=== PATIENT | female | born 1970 | race Caucasian/White ===

== ENCOUNTER 2023-04-06 19:22 | Emergency (ER) | payer MEDICAID, SELFPAY ==
--- NOTE | ~2023-04-06 | CT_ITS ---
EXAMINATION: CT ABDOMEN AND PELVIS WITHOUT CONTRAST CLINICAL INFORMATION: Nausea and vomiting COMPARISON: None available. TECHNIQUE: Multidetector volumetric imaging was performed from the superior aspect of the liver through the pubic symphysis. Sagittal and coronal reformatted images were obtained on the technologist's workstation. This CT examination was performed using dose optimization techniques as appropriate, variously including the following: *Automated exposure control *Adjustment of mA and/or kV according to patient size (this includes techniques or standardized protocols for targeted exams where dose is matched to indication/reason for exam; i.e. extremities or head) *Use of iterative reconstruction technique DLP: 1346 mGy-cm in conjunction with the head CT. FINDINGS: LUNG BASES: The visualized lung bases are unremarkable. LIVER, GALLBLADDER, AND BILIARY TREE: The liver is normal in size, shape, and attenuation. No focal hepatic lesion or biliary ductal dilatation is present. The gallbladder is unremarkable with no evidence of radiopaque gallstones, gallbladder wall thickening, or obvious pericholecystic inflammatory changes. PANCREAS: Unremarkable. SPLEEN: Unremarkable. ADRENAL GLANDS: Unremarkable. KIDNEYS AND URETERS: The kidneys are normal in size, shape, and attenuation. No hydronephrosis, hydroureter, or calculi seen. No perinephric stranding. BLADDER: Mostly decompressed with a Wen catheter in place. GASTROINTESTINAL TRACT: The stomach is unremarkable. Normal caliber small bowel. No obstruction. No colonic wall thickening or inflammation. The appendix is not seen. No inflammation in the region of the cecum to suggest acute appendicitis. No colonic wall thickening or inflammation. No free air or free fluid. ABDOMINAL WALL: No significant hernia is appreciated. LYMPH NODES: Normal. VASCULAR: Unremarkable. PELVIC VISCERA: The uterus and adnexa are unremarkable. OSSEOUS STRUCTURES: No acute or suspicious osseous abnormality. Mild degenerative change at L4-L5 with disc space narrowing and vacuum disc phenomenon. CT/CT abdomen pelvis wo IV con IMPRESSION: No acute findings in the abdomen or pelvis. No inflammatory changes. Fleischner guidelines were followed.
--- NOTE | ~2023-04-06 | CT_ITS ---
EXAMINATION: CT HEAD WITHOUT CONTRAST CLINICAL INFORMATION: Altered mental status COMPARISON: None. TECHNIQUE: Contiguous axial imaging was performed from the skull base to vertex without intravenous contrast. This CT examination was performed using dose optimization techniques as appropriate, variously including the following: * Automated exposure control * Adjustment of mA and/or kV according to patient size (this includes techniques or standardized protocols for targeted exams where dose is matched to indication/reason for exam; i.e. extremities or head) Use of iterative reconstruction technique DLP: 1346 mGy-cm in conjunction with the abdominal CT. FINDINGS: There is no evidence of acute intracranial hemorrhage or territorial infarction. No abnormal mass effect or midline shift is seen. Melendez to white matter differentiation is well preserved. No extra-axial fluid collections are identified. No hydrocephalus. No significant volume loss. There is no abnormal attenuation within the brain parenchyma. The osseous structures and soft tissues are normal. The mastoid air cells and visualized portions of the paranasal sinuses are well aerated. CT/CT head/brain wo IV con IMPRESSION: No acute intracranial pathology.
--- NOTE | ~2023-04-06 | XR_ITS ---
EXAMINATION: XR CHEST CLINICAL INFORMATION: Chest pain. COMPARISON: None available. TECHNIQUE: Frontal portable view of the chest was obtained. 9:54 PM FINDINGS: No significant abnormality is noted involving the heart, lungs, mediastinum, bony thorax or soft tissues. XR/XR chest 1V IMPRESSION: Unremarkable examination.
--- NOTE | 2023-04-06 19:48 | ECG_ITS ---
Test Reason : NAUSEA/VOMITING Blood Pressure : / mmHG Vent. Rate : 073 BPM Atrial Rate : 073 BPM P-R Int : 208 ms QRS Dur : 084 ms QT Int : 438 ms P-R-T Axes : 073 056 071 degrees QTc Int : 482 ms Normal sinus rhythm Prolonged QT Abnormal ECG No previous ECGs available Referred By: Millie Rodriguez Electronically Signed By:ANGELA SALAZAR MD
[2023-04-06 19:52] VITALS: BP 143/91; PULSE 90; O2SAT 98
[2023-04-06 19:53] VITALS: PULSE 90; RESP 20; O2SAT 96; BMI 23.5
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
--- NOTE | 2023-04-06 20:01 | MHC.EDTECH ---
PATIENT CAME IN VIA EMS ,PATIENT VOMIT ALL OVER HER BODY ,AND WAS INCONTINENT OF LOOSE STOOL ARE GIVEN ,BEDDING CHANGE ,PATIENT IS MORE AWAKE NOW ,AND IS RESTING .
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
[2023-04-06] MEDS: 0.9 % Sodium Chloride 1,000 ML 999 ML IV ×3 (20:23→22:08)
[2023-04-06] MEDS: ondansetron HCL 4 MG/2 ML VIAL IVPUSH (20:23)
[2023-04-06 20:25] LABS: MANUAL DIFF FLAG NO
[2023-04-06 20:36] LABS: Basophils Absolute Auto 0.1 X10*3/uL (0.0-0.2); Basophils Percent Auto 0.6 % (0-2); Eosinophils Absolute Auto 0.4 X10*3/uL (0.0-0.4); Eosinophils Percent Auto 3.5 % (0-4); Hematocrit 36.2 % (37.0-47.0); Hemoglobin 12.1 g/dl (12.0-16.0); Imm Gran Abs Auto 0.18 X10*3/uL (0.00-0.03); Imm Gran Pct Auto 1.8 % (0.0-0.4); Lymphocytes Absolute Auto 2.7 X10*3/uL (1.2-4.9); Lymphocytes Percent Auto 27.2 % (20-40); Mean Corpuscular HGB Conc 33.4 g/dl (31.0-35.0); Mean Corpuscular Hemoglobin 31.7 pg (27.0-33.0); Mean Corpuscular Volume 94.8 fL (80.0-98.0); Mean Platelet Volume 10.1 fL (9.4-12.3); Monocytes Absolute Auto 0.7 X10*3/uL (0.1-1.2); Monocytes Percent Auto 6.6 % (2-11); Neutrophils Percent Auto 60.3 % (45-73); Platelet Count 241 X10*3/uL (160-400); Red Blood Count 3.82 X10*6/uL (4.20-5.50); Red Cell Distribution Width 12.5 % (11.0-16.0); White Blood Count 9.9 X10*3/uL (4.8-10.8)
[2023-04-06 20:42] VITALS: BP 126/78; PULSE 68; RESP 16; TEMP 36.6; O2SAT 98
[2023-04-06 20:46] LABS: Ethanol < 10 mg/dL
[2023-04-06 20:48] LABS: Alanine Aminotransferase 16 U/L (0-31); Albumin Level 4.4 g/dL (3.5-5.0); Alkaline Phosphatase 47 U/L (39-117); Anion Gap 12 (12-20); Aspartate Amino Transferase 20 U/L (5-31); Bilirubin Direct 0.2 mg/dL (0.0-0.5); Bilirubin Total 0.8 mg/dL (0.0-1.0); Blood Urea Nitrogen 13 mg/dL (9-16); Calcium 9.7 mg/dL (8.4-10.2); Carbon Dioxide 26 mmol/L (22-29); Chloride 108 mmol/L (96-108); Creatinine Clr Calc Pharmacy 76.2; Estimated Glomerular Filt Rate > 60; Glucose Random 174 mg/dL (60-115); Lipase 15 U/L (8-78); Potassium 3.1 mmol/L (3.3-5.1); Sodium 143 mmol/L (135-145); Total Protein 6.7 g/dL (6.5-8.0)
[2023-04-06 20:51] LABS: Acetaminophen LAB < 17 mcg/mL (<30); Salicylate < 5.0 mg/dL (15-30); Troponin-I High Sensitivity < 2.7 ng/L (<3.5-17.0)
[2023-04-06 21:23] VITALS: BP 118/72; PULSE 52; RESP 16; TEMP 36.8; O2SAT 98
[2023-04-06 21:33] LABS: Appearance Urine Clear; Color Urine Yellow; Glucose Urine UA Negative (Negative); Leukocyte Esterase Urine Negative (Negative); Nitrite Urine Negative (Negative); PH 5.5 (5.0-9.0); Urine Blood Negative (Negative); Urine Ketones Trace mg/dL (Negative); Urine Protein Negative (Neg-Trace)
[2023-04-06 21:44] LABS: Amphetamine Screen Urine Not Detected (Not Detect); Barbiturates, Urine Not Detected (Not Detect); Benzodiazepines Screen Urine Not Detected (Not Detect); Cannabinoid Screen Urine POSITIVE (Not Detect); Cocaine Screen Urine Not Detected (Not Detect); Fentanyl, urine Not Detected (Not Detect); Opiate Screen Urine Not Detected (Not Detect); Phencyclidine Screen Urine Not Detected (Not Detect)
[2023-04-06 21:51] LABS: WBC Urine 0-5 /HPF (0-5)
[2023-04-06 21:52] LABS: Bacteria Urine Trace (None Seen); Hyaline Casts Urine 0-2 /LPF (0-2); RBC Urine 0-2 /HPF (0-2); Squamous Epithelial Cell Urine 0-2 /HPF (0-2)
[2023-04-06 22:00] VITALS: BP 119/74; PULSE 52; RESP 16; O2SAT 100
[2023-04-07] VITALS: BP 135/83; PULSE 56; RESP 16; TEMP 36.8; O2SAT 97
== END 2023-04-07 00:32 | disposition home or self-care (01) ==
PROVIDERS: Emergency Provider Emergency Medicine Emergency Medical Services
DX: E86.0 Dehydration (principal); R11.2 Nausea with vomiting, unspecified; F12.99 Cannabis use, unspecified with unspecified cannabis-induced disorder; R53.83 Other fatigue
CPT/HCPCS: 36415; 70450; 71045; 74176; 80048; 80076; 80143; 80179; 80307; 81001; 83690; 84484; 85025; 93005; 96361; 96374; 99284; 99285; J2405

== ENCOUNTER → 2023-04-06 19:48 | Outpatient (BNV) | payer OTHER, SELFPAY | PROVIDERS: Emergency Provider Emergency Medicine Emergency Medical Services; Visit Provider Internal Medicine Cardiovascular Disease | DX: R11.2 Nausea with vomiting, unspecified (principal) | CPT/HCPCS: 93010 ==

== ENCOUNTER 2025-04-11 15:16 | Outpatient (AMB) | payer BC, SELFPAY ==
--- OUTSIDE RECORDS SUMMARY | 2025-04-11 16:06 | XMS_ITS | Clinical Summary ---
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 Active ciprofloxacin HCl (CIPRO) 500 mg Tablet 07/31/2015 Active Active Problems Problem Noted Date Diagnosed Date Chronic cough 10/10/2015 Difficulty breathing 08/13/2015 Heart burn 08/13/2015 Chronic fatigue 08/13/2015 Dysuria 08/13/2015 Social History Tobacco Use Types Packs/Day Years Used Date Smoking Tobacco: Never Smokeless Tobacco: Never Comments No Sex and Gender Information Value Date Recorded Sex Assigned at Not on file Legal Sex Female 3:03 PM EDT Gender Identity Not on file Sexual Orientation Not on file Last Filed Vital Signs Vital Sign Reading Time Taken Comments Blood Pressure 128/87 01/07/2016 1:12 PM EDT Pulse 87 01/07/2016 1:12 PM EDT Temperature 36.8 C (98.2 F) 06/24/2015 12:57 PM EDT Respiratory Rate 16 06/24/2015 12:57 PM EDT Oxygen Saturation 100% 06/24/2015 12:57 PM EDT Inhaled Oxygen Concentration - - Weight 61.2 kg (135 lb) 01/07/2016 1:12 PM EDT Height 180.3 cm (5' 11 ) 01/07/2016 1:12 PM EDT Body Mass Index 18.83 01/07/2016 1:12 PM EDT Plan of Treatment Health Maintenance Due Date Last Done Comments CT Colonography 1970 Colonoscopy 1970 Colorectal Cancer Screening 1970 FIT DNA 1970 FIT 1970 Sigmoidoscopy (10 year) with FIT yearly 1970 Sigmoidoscopy 1970 HIV screen 1988 Hepatitis C Screening 1988 Hepatitis B vaccine (0-59 yrs) and Risk (1) 1989 Tetanus/Diphtheria/Pertussis Vaccines (1 - Tdap) 05/09 HPV test 2000 PAP Smear 2000 Breast Cancer Share Decision Needed 2010 Breast Cancer screening 2010 Pneumoccocal Vaccine: 50+ (1 of 1 - PCV) 2020 Zoster vaccine (1 of 2) 2020 Covid-19 Vaccine (1 - season) 2024 Influenza (Flu) vaccine (1 o f 1 - Influenza standard series) 05/15/2025 Insurance [facility] OOS Care Teams Cuffing Machine Operator Relationship Specialty Start Date End Date None None PCP - General 06/24/15
--- OUTSIDE RECORDS SUMMARY | 2025-04-11 16:06 | XMS_ITS | Clinical Summary ---
Author Organization [facility] Address [address] [place], [place] [id number] Phone Care Team Providers Care Ophthalmology Assistant Name Role Phone Pcp, Not Required Primary Care Provider Unavaila ble Allergies Active Allergy Reactions Criticality Noted Date Comments Mold 04/14/2024 Medications No known medications Active Problems Problem Noted Date Diagnosed Date Sleep-disordered breathing 04/14/2024 Assessment & Plan (04/14/2024 12:55 PM EDT): I had the pleasure of seeing Ms. Rogers today as a new patient for evaluation of suspected sleep disordered breathing/sleep apnea. Based on her symptoms of frequent nighttime awakenings, nonrestorative sleep and her episodes where she wakes up with a sensation as though it is difficult to breathe, I feel that further workup for LORI is indicated. I placed an order for her to undergo overnight portable sleep testing. I plan to see her back to review those results. Optimal body weight, nonsupine sleep positioning and sleep hygiene are all appropriate. Nasal obstruction 04/14/2024 Assessment & Plan (04/14/2024 12:56 PM EDT): She also describes a sensation as though there is something blocking her upper airways. She was assured that on her detailed examination of the upper aerodigestive tract, there is nothing focally suspicious or worrisome. In particular, there is no mass lesion, infection, foreign body, polyps or adenoid hypertrophy. She does have a mild residual left septal deviation despite previous surgery. I doubt this is the culprit. Allergy management, environmental controls and saline are reasonable. I have asked her to forward a copy of her recent CT scan report. I do not see a clear indication for antibiotics, surgery or further imaging at this time. Social History Tobacco Use Types Packs/Day Years Used Date Smoking Tobacco: Never Smokeless Tobacco: Never Tobacco Cessation:Counseling Given: Not Answered Comments:Allergy to cigarette smoke Alcohol Use Standard Drinks/Week Comments Yes 0 (1 standard drink = 0.6 oz pur e alcohol) occ. Education Answer Date Recorded Are you interested in more education? Not on melinda e 01/14/2024 Are you concerned about learning? Not on file 01/14/2024 No 01/14/2024 No 01/14/2024 Digital Access Answer Date Recorded No 01/14/2024 No 01/14/2024 Reliable internet access at home? Not on file 01/14/2024 Device with a working camera? Not on file Comments Unknown Sex and Gender Information Value Date Recorded Sex Assigned at Not on file Legal Sex Female 10:26 AM EDT Gender Identity Not on file Sexual Orientation Not on file Last Filed Vital Signs Vital Sign Reading Time Taken Comments Blood Pressure - - Pulse - - Temperature - - Respiratory Rate - - Oxygen Saturation - - Inhaled Oxygen Concentration - - Weight 63.5 kg (140 lb) 04/14/2024 12:31 PM EDT Height 180.3 cm (5' 11 ) 04/14/2024 12:31 PM EDT Body Mass Index 19.53 04/14/2024 12:31 PM EDT Plan of Treatment Health Maintenance Due Date Last Done Comments Adult Td,Tdap Booster 1970 LIPID PANEL 1970 DEPRESSION SCREENING 1982 HEPATITIS C SCREENING 1988 HIV ONE-TIME SCREENING (18-6 5 YEARS) 1988 PAP SMEAR 1991 MAMMOGRAM 2010 COLOGUARD 2015 COLONOSCOPY 2015 COLORECTAL CANCER SCREENING 2015 FIT TEST 2015 FOBT 2015 SIGMOIDOSCOPY 2015 VIRTUAL COLONOSCOPY 2015 PNEUMOCOCCAL VACCINES (50+ y ears) (1 of 1 - PCV) 2020 ZOSTER VACCINES (1 of 2) 2020 COVID-19 VACCINE ( - 2023-2 5 season) 2024 SMOKING STATUS SCREENING (On ce After 26 Yrs) Completed 04/14/2024 HEPATITIS A VACCINES Aged Out No long er eligible based on patient's age to complete this topic HIB VACCINES Aged Out No longer eligi ble based on patient's age to complete this topic MENINGOCOCCAL VACCINES (ACWY) Aged Out No longer eligible based on patient's age to complete this topic MENINGOCOCCAL VACCINES (B) Aged Out N o longer eligible based on patient's age to complete this topic Medical Devices Not on file Insurance PPO EPO PPO EPO PPO EPO [facility] PPO EPO PPO EPO [facility] PPO EPO Care Teams Ophthalmology Assistant Relationship Specialty Start Date End Date Pcp, Not Required [address] [place] [address] PCP - General 04/17/24 Additional Source Comments The information contained in this document represents components of the legal health record. It is not the complete legal health record.[facility]
--- OUTSIDE RECORDS SUMMARY | 2025-04-11 16:06 | XMS_ITS | Clinical Summary ---
Author Organization [facility] Address [address] [id number] Care Team Providers Care Quality Control Analyst Name Role Phone Chris Howell MD Primary Care Provider [phone] Chris Howell MD Unavailable [phone] Allergies Active Allergy Reactions Criticality Noted Date Comments Mold 04/22/2019 Active Problems Problem Noted Date Diagnosed Date Fatigue 07/27/2020 Fungal infection 07/27/2020 Fungal infection of foot 07/27/2020 Broken foot 04/26/2020 Dysphagia 04/22/2019 Overview (10/18/2023): Impression - [id number]: feel due to post nasal drip recommend flonase and mucinex prn increase fluids Immunizations Immunization Administration Dates Next Due MMR 08/28/2019 Family History Medical History Relation Name Comments Cirrhosis/Hepatitis/Liver Disorder Mother type B viral hepatitis : Mother Relation Name Status Comments Mother Social History Tobacco Use Types Packs/Day Years Used Date Smoking Tobacco: Never Assessed Comments:Smoking Status:No c urrent tobacco use Comments Unknown Sex and Gender Information Value Date Recorded Sex Assigned at Not on file Legal Sex Female 3:41 PM EDT Gender Identity Not on file Sexual Orientation Not on file Last Filed Vital Signs Vital Sign Reading Time Taken Comments Blood Pressure 120/80 07/27/2020 3:03 PM EST Pulse 57 07/27/2020 3:03 PM EST Temperature 36.6 C (97.9 F) 07/27/2020 2:50 PM EST Respiratory Rate 14 07/27/2020 3:09 PM EST Oxygen Saturation 98% 07/27/2020 3:03 PM EST Inhaled Oxygen Concentration - - Weight 68 kg (150 lb) 07/27/2020 3:03 PM EST Height 180.3 cm (5' 11 ) 07/27/2020 3:03 PM EST Body Mass Index 20.92 07/27/2020 3:03 PM EST Plan of Treatment Health Maintenance Due Date Last Done Comments Pap Smear 1986 DTaP/Tdap/Td (1 - Tdap) 1988 Hep B (1 of 3 - 19+ 3-dose series) 1989 Mammogram/Breast Imaging 2010 Colon Cancer Screening 2015 Pneumococcal 50+ years (1 of 1 - PCV) 2020 Zoster (Shingrix) (1 of 2) 2020 COVID-19 Vaccine (1 - 2023-2 5 season) 2024 Influenza (#1) 2025 Hepatitis C Screening Completed 07/27/2020 LDL Cholesterol Discontinued 07/27/2020, 04/22/2019 Physical Discontinued 07/27/2020, 04/22/2019 HPV Vaccine (No Doses Required) Completed Hep A Aged Out No longer eligi ble based on patient's age to complete this topic Hib Aged Out No longer eligi ble based on patient's age to complete this topic Meningococcal ACWY Aged Out No longer eligible based on patient's age to complete this topic Procedures Procedure Name Priority Date/Time Associated Diagnosis Comments HEPATITIS C ANTIBODY W/ REFLEX TO RNA, QN, RT PCR Routine 07/27/2020 3:20 PM EST LIPID PANEL, PLASMA Routine 07/27/2020 3 :20 PM EST from Last 3 Months or Most Recently Relevant to Health Maintenance Results * HEPATITIS C ANTIBODY W/ REFLEX TO RNA, QN, RT PCR (07/27/2020 3:20 PM EST) Hepatitis C virus Ab NON-REACT CHARY NON-REACT CHARY PHCT CONVERSIONS Hepatitis C virus Ab 0.05 <1.00 PHCT CONVERSIONS Comment:Antibodies to HCV we re not detected. NOTE: This does not entirely exclude the possibility of exposure to HCV since antibody production may lag infection. If there is a high suspicion of HCV infection HCV RNA testing may be of diagnostic value. 07/27/2020 3:20 PM EST Narrative PHCT CONVERSIONS - 07/27/2020 10:49 PM EST Testing Performed at: [facility], [address] [place] [id number], , Hockey Player: Sary Alicea MD CL#[id number] Chris Howell MD LABORATORY Final Result Performing Organization Address [facility] de Phone Number PHCT CONVERSIONS * (ABNORMAL) LIPID PANEL, PLASMA (07/27/2020 3:20 PM EST) Cholesterol 265(H) 0 - 199 mg/dL [facility] CONVERSIONS Triglyceride 110 0 - 150 mg/dL [facility] CONVERSIONS VLDL Cholesterol 22 5 - 40 mg/dL [facility] CONVERSION[facility] HDL Cholesterol 95(H) 50 - 80 mg/dL [facility] CONVERSION[facility] LDL Cholesterol 148(H) 0 - 100 mg/dL [facility] CONVERSION[facility] Cholesterol Non-HDL 170(H) 0 - 130 mg/dl [facility] CONVERSIONS CHOL/HDL Ratio 2.8 PH[facility] CONVERSIONS 07/27/2020 3:20 PM EST Narrative PHCT CONVERSIONS - 07/27/2020 10:01 PM EST FASTING: YES Testing Performed at: [facility], [address] [place] [id number], , Hockey Player: Sary Alicea MD CL#[id number] Chris Howell MD LABORATORY Final Result Performing Organization Address [facility] Co de Phone Number PHCT CONVERSIONS from Last 3 Months or Most Recently Relevant to Health Maintenance Care Teams Quality Control Analyst Relationship Specialty Start Date End Date Chris Howell MD [address] [place] [address] PCP - General 04/20/23 Chris Howell MD [address] [place] [address] PCP - Backup PCP Internal Medicine 10/15/23
--- OUTSIDE RECORDS SUMMARY | 2025-04-11 16:06 | XMS_ITS | Clinical Summary ---
Author Organization [facility] Address [address] [place] [address] Care Team Providers Care Exercise Scientist Name Role Phone Pcp, No Primary Care Provider Unavailabl e Allergies No known active allergies Medications escitalopram (LEXAPRO) 10 MG tabletIndication s:Depression, unspecified depression type,Anxiety Take 1 tablet (10 mg total) by mouth daily. 90 tablet 1 11/23/2020 Active Active Problems Problem Noted Date Diagnosed Date Chronic rhinitis 11/23/2020 Left foot pain 11/16/2020 Immunizations Immunization Administration Dates Next Due MMR 09/26/2019 Family History Medical History Relation Name Comments No Known Problems Father No Known Problems Mother Relation Name Status Comments Father Mother Other Does not know i f or alive Social History Tobacco Use Types Packs/Day Years Used Date Smoking Tobacco: Never Smokeless Tobacco: Never Alcohol Use Standard Drinks/Week Comments Yes 0 (1 standard drink = 0.6 oz pur e alcohol) socially PHQ-2 Answer Date Recorded PHQ-2 Total Score 6 11/23/2020 Comments No Sex and Gender Information Value Date Recorded Sex Assigned at Not on file Legal Sex Female 1:01 PM EDT Gender Identity Not on file Sexual Orientation Not on file Last Filed Vital Signs Vital Sign Reading Time Taken Comments Blood Pressure 127/87 11/23/2020 4:27 PM EST Pulse 67 11/23/2020 4:27 PM EST Temperature 37 C (98.6 F) 11/10/2020 1:13 PM EST Respiratory Rate 14 11/16/2020 2:58 PM EST Oxygen Saturation 98% 11/23/2020 4:27 PM EST Inhaled Oxygen Concentration - - Weight 67.6 kg (149 lb) 11/16/2020 2:58 PM EST Height 180.3 cm (5' 11 ) 11/10/2020 1:13 PM EST Body Mass Index 20.78 11/10/2020 1:13 PM EST Plan of Treatment Health Maintenance Due Date Last Done Comments Hepatitis C Virus Screening 1970 HIV Screening 1983 DTaP/Tdap/Td Vaccines (1 - Tdap) 1989 Hepatitis B Vaccines (1 of 3 - 19+ 3-dose series) 04/15 Pap Smear (Ages 21-65) 1991 Mammogram 2010 Colonoscopy 2015 Pneumococcal Vaccines 50+ (1 of 1 - PCV) 2020 Zoster (Shingles) Vaccine (1 of 2) 2020 COVID-19 Vaccine (1 - 2023- season) 2024 Influenza Vaccine 04/14/[address] [place] [address] [place] [address] HMO/POS Care Teams Exercise Scientist Relationship Specialty Start Date End Date Pcp, No [address] [place] [address] PCP - General 11/21/21
--- OUTSIDE RECORDS SUMMARY | 2025-04-11 16:06 | XMS_ITS ---
Author Name [facility] Organization Unknown Care Team Organization Name Specialty Phone Email Start Date End Da te [facility] 08/26/20222023 [facility] 07/25/20222021 [facility] 07/16/2022 05/02/2024
[2025-04-11 16:11] VITALS: BP 124/76; PULSE 69; TEMP 36.8; O2SAT 97; BMI 23.6
--- NOTE | 2025-04-11 16:11 | MHC.OFFWIV ---
Intake Vital Signs 04/11/25 16:11 Height 5 ft 7 in Weight 151 lb BMI 23.6 BP 124/76 Blood Pressure Location Rt brachial Position Sitting Pulse 69 Pulse Source Pulse Oximeter Temp 98.2 F Temp Source Oral Pulse Oximetry (%) 97 Oxygen Delivery Method Room Air Intake Visit Reasons: EP-rt hand mid digit swollen Patient Tobacco Use Status: Never used Tobacco Sack Repairer Required: No Is last menstrual period known: No Post menopausal: Yes Patient : No Allergies No Known Allergies Allergy (Verified 04/06/23 19:47) Do you need a note to return to daycare/school/sports/work: No HPI HPI Comments History of Present Illness Details History of Present Illness - The patient is a 54-year-old female presenting with a finger injury. - The injury occurred approximately a week and a half ago while handling a metal cooking quintero. - Initially, the injury appeared as a small cut, which healed, but the finger developed swelling and limited range of motion. - The patient reports tenderness and swelling at the site, with difficulty bending the finger. - There is a concern for possible infection due to handling meat during food preparation. - The patient denies any significant bleeding at the time of injury. - She wants an antibiotic for a possible infection. - She denies redness, warmth, numbness, tingling, discharge, or swelling, - She denies fever or chills. Physical Exam General: Cooperative, healthy appearing, comfortable, no acute distress and well developed Respiratory: Normal respiratory effort and able to speak in complete sentences. Clear to auscultation bilaterally Cardiovascular: Regular rate and rhythm. Normal S1 and S2 Skin: No rashes or lesions noted. No bruising or redness noted. No streaking noted. Neuro: Sensation intact. Extremities: FROM of the right 3rd digit. TTP of the medial and lateral DIP joint. Cap refill is less than 3 seconds. Hand arrow point attacher is intact. Patient was informed and verbally consented to the use of an ambient scribe for clinic note documentation during this visit. [facility] Social History Alcohol intake: unknown Patient Tobacco Use Status: Never used Tobacco Patient : No Physical Exam Vital Signs: Last Vital Signs Temp 98.2 F 04/11/25 16:11 Pulse 69 04/11/25 16:11 BP 124/76 04/11/25 16:11 Pulse Ox 97 04/11/25 16:11 Oxygen Delivery Method Room Air 04/11/25 16:11 BMI result Body Mass Index 23.6 Assessment & Plan Assessment & Plan (1) Pain of right middle finger: Code(s): M79.644 - Pain in right finger(s) Plan Most likely tendon injury vs nerve injury vs abrasion vs ?fracture vs contusion Plan - Initiate antibiotic therapy to address potential infection. - Recommend anti-inflammatory medication and icing to reduce swelling. - Offered her a finger splint and pt refused - Offered her an x-ray and pt refused - Monitor for improvement over the next week, with follow-up if symptoms persist. Medications: New cephalexin 500 mg PO Q6H 28 caps 0RF Discontinued ondansetron Discontinued Reason: Patient no longer taking 4 mg PO Q6-8H PRN 10 tabs 0RF nausea and vomiting Coding Level of Care Code Est Pt Level 3 (54368) Diagnoses Pain of right middle finger M79.644
== END 2025-04-11 16:45 | disposition home or self-care (01) ==
PROVIDERS: Visit Provider Physician Assistant Medical
DX: M79.644 Pain in right finger(s) (principal)

== ENCOUNTER 2025-08-18 11:55 | Outpatient (AMB) | payer BC, SELFPAY ==
[2025-08-18 12:07] VITALS: BP 124/80; PULSE 84; TEMP 36.7; O2SAT 99; BMI 24.1
--- NOTE | 2025-08-18 12:07 | AM.OFFWIN_ITS ---
Intake Vital Signs 08/18/25 12:07 Height 5 ft 7 in Weight 154 lb BMI 24.1 BP 124/80 Blood Pressure Location Lt brachial Position Sitting Pulse 84 Pulse Source Pulse Oximeter Temp 98.1 F Temp Source Oral Pulse Oximetry (%) 99 Oxygen Delivery Method Room Air Intake Visit Reasons: EP-?uti, lower back pain, vaginal irritation Intake Note: pt presents with concern for a UTI, states s/s started with vaginal raw feeling, strong urine odor and cloudy, low back pain LT > RT, frequent urge to void with little output. pap last done 05/2025 resulted negative. Patient Tobacco Use Status: Never used Tobacco Allergies No Known Allergies Allergy (Verified 08/18/25 12:16) Do you need a note to return to daycare/school/sports/work: Yes HPI EP-?uti, lower back pain, vaginal irritation HPI Details This is a 55 year old female patient who presents to the [place] clinic with report of sensation of vaginal irritation/itching as well as UTI symptoms including urinary burning, urgency, inability to fully empty bladder. Also having some mild left flank pain. Denies any fevers/chills. Denies any new partners or any reason for vaginal irritation. Reports inside of her vagina feels irritated, however her vulvar area is fine. [facility] Social History Alcohol intake: unknown Patient Tobacco Use Status: Never used Tobacco Review of Systems Const All systems reviewed & are unremarkable except as noted in HPI and below Physical Exam Vital Signs: Last Vital Signs Temp 98.1 F 08/18/25 12:07 Pulse 84 08/18/25 12:07 BP 124/80 08/18/25 12:07 Pulse Ox 99 08/18/25 12:07 Oxygen Delivery Method Room Air 08/18/25 12:07 BMI result Body Mass Index 24.1 Const General: cooperative, healthy appearing, comfortable and no acute distress Resp Effort & Inspection: normal respiratory effort General: Yes bladder normal to palpation and Yes CVA tenderness on the left (mild left) External Female Exam: normal external appearance Speculum Exam - Vagina: normal appearance of the vagina Bimanual exam- vagina & uterus: bladder normal to palpation Back/Spine/Pelvis Back: CVA tenderness Skin General skin exam: no rashes or lesions noted Extrem General: Yes no clubbing, cyanosis or edema Psych Appearance: grossly normal Mental Status: mental status grossly normal Speech and movement: Normal speech and movement present Results AMB Urinalysis, Automated UA Leukoctes 500 Jaime/uL Last Edit by Sidra Solomon CMA on 08/18/25 12:25 3+ Sidra Solomon 08/18/25 12:25 UA Nitrite Positive Last Edit by Sidra Solomon CMA on 08/18/25 12:25 UA Urobilinogen 0.2 mg/dL Last Edit by Sidra Solomon CMA on 08/18/25 12:2 5 UA Protein 30 mg/dL Last Edit by Sidra Solomon CMA on 08/18/25 12:25 1+ Sidra Solomon 08/18/25 12:25 UA pH 6.0 Last Edit by Sidra Solomon CMA on 08/18/25 12:25 UA Blood 200 Mikhail/uL Last Edit by Sidra Solomon CMA on 08/18/25 12:25 3+ Sidra Solomon 08/18/25 12:25 UA Specific Bivins 1.015 Last Edit by Sidra Solomon CMA on 08/18/25 12: 25 UA Ketone Negative Last Edit by Sidra Solomon CMA on 08/18/25 12:25 UA Bilirubin 0 mg/dL Last Edit by Sidra Solomon CMA on 08/18/25 12:25 UA Glucose 0 mg/dL Last Edit by Sidra Solomon CMA on 08/18/25 12:25 Assessment & Plan Assessment & Plan (1) Urinary tract infection: Code(s): N39.0 - Urinary tract infection, site not specified Qualifiers: Urinary tract infection type: acute cystitis Hematuria presence: with hematuria Qualified Code(s): N30.01 - Acute cystitis with hematuria Plan: Urine dip with pro, blo, leuks, nit. Will start patient on abx. We reviewed indications, use, possible s/e of medication. Encouraged increased hydration. She is having some mild left flank pain. We discussed that if she does not improve with treatment or if symptoms worsen or if she develops any fevers she should return to the clinic or go to the ED for evaluation. She verbalizes understanding and agrees to plan. (2) Vaginal irritation: Code(s): N89.8 - Other specified noninflammatory disorders of vagina Plan: Topical corticosteroid ointment prescribed and reviewed with patient. She will f/u as needed if she does not improve with treatment. Orders: Orders AMB Urinalysis Automated Today Z13.9 - Encounter for screening, unspecified Medications: New triamcinolone acetonide 0.1% Apply once a day at bedtime. 1 appl topical DAILY 30 grams 0RF 30 days N89.8 - Other specified noninflammatory disorders of vagina cefuroxime axetil 500 mg PO BID 10 tabs 0RF 5 days N30.01 - Acute cystitis with hematuria Coding Level of Care Code Est Pt Level 4 (04129) Diagnoses Acute cystitis with hematuria N30.01 Urinary tract infection type: acute cystitis Hematuria presence: with hematuria Vaginal irritation N89.8
== END 2025-08-18 13:19 | disposition home or self-care (01) ==
PROVIDERS: Visit Provider Nurse Practitioner Family
DX: N30.01 Acute cystitis with hematuria (principal); N89.8 Other specified noninflammatory disorders of vagina; Z13.9 Encounter for screening, unspecified

== ENCOUNTER → 2025-08-18 11:55 | Outpatient (BNVA) | payer BC, SELFPAY | PROVIDERS: Visit Provider Nurse Practitioner Family | DX: N30.01 Acute cystitis with hematuria (principal); N89.8 Other specified noninflammatory disorders of vagina | CPT/HCPCS: 81003 ==